=== PATIENT | female | born 1940 | race Caucasian/White ===

== ENCOUNTER 2017-01-05 21:43 | Emergency (ER) | payer MEDICARE, BC ==
[2017-01-05] MEDS ORDERED: Labetalol 20 MG/4 ML Syringe IVPUSH ONE (22:41)
[2017-01-05] MEDS: Sodium Chloride 0.9% 10 ML Syringe FLUSH PRN (23:27)
[2017-01-06] MEDS ORDERED: LORazepam 2 MG/ML MDV IVPUSH ONE (00:01)
[2017-01-06] MEDS: Sodium Chloride 0.9% 10 ML Syringe FLUSH PRN (00:28)
--- NOTE | 2017-01-06 00:50 | EDM.PDOC ---
ED HPI DIZZINESS - General Chief Complaint: Syncope Stated Complaint: DIZZY Time Seen by Provider: 01/05/17 22:25 Source: Reports: Patient Exam Limitations: Reports: No limitations - History of Present Illness INITIAL COMMENTS - FREE TEXT/NARRATIVE: History of present illness: [This 76-year-old female presents complaining of feeling funny". She describes dizziness and it's been a little difficult to determine exactly what she means by this but there is an element of vertigo in her dizziness. She has a sensation of movement and sometimes a spinning sensation and sometimes when she tilts her head back it gets worse moving her head from side to side does not seem to affect it she had a headache at the base of her scar and that has resolved she's had no fevers or chills cough or cold symptoms she denies any visual disturbances denies any focal weaknesses of arms or legs her speech is been good she's had no swallowing difficulties. She denies any prior strokes or heart attacks. She is on meds for cholesterol and hypertension.] Review of systems: As per history of present illness and below otherwise all systems reviewed and negative. Past medical history: As per history of present illness and as reviewed below otherwise noncontributory. Surgical history: As per history of present illness and as reviewed below otherwise noncontributory. Social history: No reported history of drug or alcohol abuse. Family history: As per history of present illness and as reviewed below otherwise noncontributory. Physical exam: HEENT: Atraumatic, normocephalic, pupils reactive, negative for conjunctival pallor or scleral icterus, mucous membranes moist, throat clear, neck supple, nontender, trachea midline. Her TMs are clear her pupils are equal round and react to light. She has no facial asymmetries or speech disturbance Lungs: Clear to auscultation, breath sounds equal bilaterally, chest nontender. Heart: S1S2, regular, negative for clicks, rubs, or JVD. Abdomen: Soft, nondistended, nontender. Negative for masses or hepatosplenomegaly. Negative for costovertebral tenderness. Pelvis: Stable nontender. Genitourinary: Deferred. Rectal: Deferred. Extremities: Atraumatic, negative for cords or calf pain. Neurovascular unremarkable. Neuro: Awake, alert, oriented. Cranial nerves II through XII unremarkable. Cerebellum unremarkable. Motor and sensory unremarkable throughout. Exam nonfocal. Diagnostics: [Addendum CBC a complete metabolic panel and a head CT. No significant finding is a head CT showing chronic changes age-related changes and lacunar infarcts probably see that report for details.] Therapeutics: [Her blood pressure was quite elevated when she came in and was treated with labetalol successfully. After her blood pressure came down she felt better. 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 We discussed the possibility that she may benefit from an MRI. She plans to followup with her primary care doctor to discuss this and to continue time controlling her blood pressure. 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 - Related Data Allergies/ADRs: Allergies Allergy/AdvReac Type Severity Reaction Status Date / Time Anesthetics - Amide Type Allergy Respiratory Verified 01/05/17 22:18 Distress morphine Allergy Nausea and Verified 01/05/17 22:18 Vomiting Home Meds: Home Meds Aspirin [Aspirin EC] 81 mg PO DAILY 01/06/17 [History] L Gasseri/B Bifidum/B Longum [[employer] Capsule] 1 cap PO DAILY [History] Lisinopril [Lisinopril] 20 mg 01/06/17 [History] Multivitamin [Multi-Vitamin Daily] 1 tab PO DAILY 01/06/17 [History] Naproxen Sodium [Aleve] 220 mg PO ASDIRECTED PRN 01/06/17 [History] [place]-3/DHA/Epa/Fish Oil [[place] 3 500 Softgel] 1 cap PO BEDTIME 01/06/17 [ History] atorvaSTATin [Lipitor] 20 mg PO BEDTIME 01/06/17 [History] Past Medical History HEENT History: Reports: Hard of hearing, Impaired vision Cardiovascular History: Reports: High cholesterol, Hypertension Gastrointestinal History: Reports: Hemorrhoids, Other (see below) Other Gastrointestinal History: gallstones Musculoskeletal History: Reports: Arthritis - Infectious Disease History Infectious Disease History: Reports: Chicken pox, Measles, Mumps, Rubella - Past Surgical History Female Surgical History: Reports: Other (see below) Other Female Surgeries/Procedures: cyst removal from perineum Social & Family History - Tobacco Use Smoking Status *Q: Never Smoker - Caffeine Use Caffeine Use: Reports: Coffee - Recreational Drug Use Recreational Drug Use: No ED ROS GENERAL - Review of Systems Review Of Systems: ROS reveals no pertinent complaints other than HPI. ED EXAM, DIZZINESS - Physical Exam Exam: See Below Course - Vital Signs Last Recorded V/S: Last Vital Signs Temp 37.1 C 01/05/17 22:09 Pulse 67 01/05/17 23:27 Resp 18 01/05/17 23:27 BP 161/77 H 01/05/17 23:27 Pulse Ox 97 01/05/17 23:27 - Orders/Labs/Meds Orders: Active Orders 24 hr Category Date Time Status EKG Documentation Completion [RC] ASDIRECTED Care 01/05/17 22:55 Active Head wo Cont [CT] Stat Exams 01/05/17 22:40 Taken UA W/MICROSCOPIC [URIN] Stat Lab 01/05/17 22:40 Uncollected Sodium Chloride 0.9% [Saline Flush] Med 01/05/17 22:41 Active 10 ml FLUSH ASDIRECTED PRN Saline Lock Insert [OM.PC] Routine Oth 01/05/17 22:41 Ordered EKG 12 Lead [EK] Stat Ther 01/05/17 22:55 Ordered Medication Orders Sodium Chloride (Saline Flush) 10 ml FLUSH ASDIRECTED PRN PRN Reason: Keep Vein Open Last Admin: 01/06/17 00:28 Dose: 10 ml Admin: 01/05/17 23:27 Dose: 10 ml Labs: Laboratory Tests 01/05/17 01/05/17 Range/Units 22:40 23:00 WBC 8.2 (4.5-11.0) K/uL RBC 4.53 (3.30-5.50) M/uL Hgb 14.1 (12.0-15.0) g/dL Hct 41.0 (36.0-48.0) % MCV 91 (80-98) fL MCH 31 (27-31) pg MCHC 34 (32-36) % Plt Count 284 (150-400) K/uL Neut % (Auto) 75 H (36-66) % Lymph % (Auto) 17 L (24-44) % Major % (Auto) 6 (2-6) % Eos % (Auto) 2 (2-4) % Baso % (Auto) 1 (0-1) % Sodium 142 (140-148) mmol/L Potassium 4.4 (3.6-5.2) mmol/L Chloride 105 (100-108) mmol/L Carbon Dioxide 27 (21-32) mmol/L Anion Gap 9.6 (5.0-14.0) mmol/L BUN 13 (7-18) mg/dL Creatinine 0.9 (0.6-1.0) mg/dL Est Cr Clr Drug Dosing 44.68 mL/min Estimated GFR (MDRD) > 60 (>60) Glucose 126 H (74-106) mg/dL Calcium 9.2 (8.5-10.1) mg/dL Total Bilirubin 1.6 H (0.2-1.0) mg/dL AST 46 H (15-37) U/L ALT 38 (12-78) U/L Alkaline Phosphatase 74 (46-116) U/L Troponin I < 0.017 (0.000-0.056) ng/mL Total Protein 7.7 (6.4-8.2) g/dL Albumin 3.8 (3.4-5.0) g/dL Globulin 3.9 H (2.3-3.5) g/dL Albumin/Globulin Ratio 1.0 L (1.2-2.2) Meds: Medications Generic Name Dose Route Start Last Admin Trade Name Freq PRN Reason Stop Dose Admin Sodium Chloride 10 ml 01/05/17 22:41 01/06/17 00:28 Saline Flush FLUSH 10 ml ASDIRECTED PRN Administration Keep Vein Open Discontinued Medications Generic Name Dose Route Start Last Admin Trade Name Freq PRN Reason Stop Dose Admin Labetalol HCl 20 mg 01/05/17 22:41 01/05/17 23:12 Normodyne IVPUSH 01/05/17 22:42 20 mg NOW ONE Administration Lorazepam 0.5 mg 01/06/17 00:01 01/06/17 00:22 Ativan IVPUSH 01/06/17 00:02 0.5 mg ONETIME ONE Administration Departure - Departure Time of Disposition: 00:50 Disposition: Home, Self-Care 01 Condition: good Clinical Impression: Dizziness, Abnormal CT scan, head Hypertension Qualifiers: Hypertension type: essential hypertension Qualified Code(s): I10 - Essential ( primary) hypertension Forms: ED Department Discharge Additional Instructions: Please followup with your doctor and discuss with him your blood pressure and also ask him if he thinks that he would benefit from an MRI of your brain. - My Orders Last 24 Hours: My Active Orders 01/05/17 22:40 Head wo Cont [CT] Stat UA W/MICROSCOPIC [URIN] Stat 01/05/17 22:41 Sodium Chloride 0.9% [Saline Flush] 10 ml FLUSH ASDIRECTED PRN Saline Lock Insert [OM.PC] Routine 01/05/17 22:55 EKG Documentation Completion [RC] ASDIRECTED EKG 12 Lead [EK] Stat - Assessment/Plan Last 24 Hours: My Active Orders 01/05/17 22:40 Head wo Cont [CT] Stat UA W/MICROSCOPIC [URIN] Stat 01/05/17 22:41 Sodium Chloride 0.9% [Saline Flush] 10 ml FLUSH ASDIRECTED PRN Saline Lock Insert [OM.PC] Routine 01/05/17 22:55 EKG Documentation Completion [RC] ASDIRECTED EKG 12 Lead [EK] Stat
[2017-01-06 01:23] VITALS: BP 168/89
== END 2017-01-06 01:09 | disposition home or self-care (01) ==
LOC: JP.ED 21:43
DX: I10 Essential (primary) hypertension (principal); R93.0 Abnormal findings on diagnostic imaging of skull and head, not elsewhere classified; E78.00 Pure hypercholesterolemia, unspecified; M19.90 Unspecified osteoarthritis, unspecified site; Z88.4 Allergy status to anesthetic agent; Z88.5 Allergy status to narcotic agent; Z79.82 Long term (current) use of aspirin; Z79.899 Other long term (current) drug therapy
CPT/HCPCS: 36415; 70450; 80053; 84484; 85025; 93005; 96374; 96375; 99285; J2060; J7050; 93010; 99284

== ENCOUNTER 2017-01-07 12:35 | Observation (INO) | payer MEDICARE, BC ==
--- NOTE | 2017-01-07 14:09 | EDM.PDOC ---
ED HPI GENERAL MEDICAL PROBLEM - General Chief Complaint: General Stated Complaint: NAUSEA,LIGHTHEADED, ELEVATED BP Time Seen by Provider: 01/07/17 14:08 Source of Information: Reports: Patient History Limitations: Reports: No limitations - History of Present Illness INITIAL COMMENTS - FREE TEXT/NARRATIVE: Pt arrived with an elevated bp. She has a headache. She is crying with out a reason Onset: gradual Duration: Hour(s):, Other (Pt was seen wed and had a head scan which showed aging changes. ) Location: Reports: head Associated Symptoms: Reports: headaches, malaise, weakness - Related Data Allergies Allergy/AdvReac Type Severity Reaction Status Date / Time Anesthetics - Amide Type Allergy Respiratory Verified 01/05/17 22:18 Distress morphine AdvReac Nausea and Verified 01/07/17 11:02 Vomiting Home Meds: Home Meds Aspirin [Aspirin EC] 81 mg PO DAILY 01/06/17 [History] L Gasseri/B Bifidum/B Longum [[employer] Capsule] 1 cap PO DAILY [History] Lisinopril [Prinivil] 30 mg PO DAILY 01/06/17 [History] Multivitamin [Multi-Vitamin Daily] 1 tab PO DAILY 01/06/17 [History] Naproxen Sodium [Aleve] 220 mg PO ASDIRECTED PRN 01/06/17 [History] [place]-3/DHA/Epa/Fish Oil [[place] 3 500 Softgel] 1 cap PO BEDTIME 01/06/17 [ History] atorvaSTATin [Lipitor] 80 mg PO BEDTIME 01/06/17 [History] Metoprolol Succinate [Toprol XL] 25 mg PO DAILY 01/07/17 [History] Past Medical History HEENT History: Reports: Hard of hearing, Impaired vision Cardiovascular History: Reports: High cholesterol, Hypertension Gastrointestinal History: Reports: Hemorrhoids, Other (see below) Other Gastrointestinal History: gallstones Musculoskeletal History: Reports: Arthritis - Infectious Disease History Infectious Disease History: Reports: Chicken pox, Measles, Mumps, Rubella - Past Surgical History Female Surgical History: Reports: Other (see below) Other Female Surgeries/Procedures: cyst removal from perineum Social & Family History - Tobacco Use Smoking Status *Q: Never Smoker - Caffeine Use Caffeine Use: Reports: Coffee - Recreational Drug Use Recreational Drug Use: No ED ROS GENERAL - Review of Systems Review Of Systems: See Below Constitutional: Reports: no symptoms HEENT: Reports: No symptoms Respiratory: Reports: No Symptoms Cardiovascular: Reports: No symptoms Endocrine: Reports: no symptoms GI/Abdominal: Reports: No symptoms : Reports: no symptoms Musculoskeletal: Reports: no symptoms Skin: Reports: no symptoms Neurological: Reports: Headache Psychiatric: Reports: Anxiety ED EXAM, GENERAL - Physical Exam Exam: See Below Free Text/Narrative:: Pt arrived with a history of inappopiate crying and her bp is quite elevated. She has not been right for the past 3-5 days. She is havinf a severe headche, Exam Limited By: Other (crying and feeling very upset.) General Appearance: alert, anxious, mild distress Ears: normal TMs Nose: normal inspection Throat/Mouth: Normal inspection Head: atraumatic Neck: normal inspection Respiratory/Chest: no respiratory distress Cardiovascular: regular rate, rhythm GI/Abdominal: soft, non tender Rectal (Female) Exam: Deferred Back Exam: normal inspection Extremities: normal inspection Neurological: alert, oriented, other ( weeping and crying as she describes how she feels. ) Psychiatric: anxious, tearful Course - Vital Signs Last Recorded V/S: Last Vital Signs Temp 36.2 C 01/07/17 18:34 Pulse 79 01/07/17 18:34 Resp 16 01/07/17 18:34 BP 143/72 H 01/07/17 18:34 Pulse Ox 95 01/07/17 18:34 - Orders/Labs/Meds Orders: Active Orders 24 hr Category Date Time Status EKG Documentation Completion [RC] ASDIRECTED Care 01/07/17 18:16 Active Renal Comp [US] Stat Exams 01/07/17 17:00 Taken Sodium Chloride 0.9% [Saline Flush] Med 01/07/17 17:00 Active 10 ml FLUSH ASDIRECTED PRN Saline Lock Insert [OM.PC] Routine Oth 01/07/17 17:00 Ordered EKG 12 Lead [EK] Routine Ther 01/07/17 18:16 Ordered Medication Orders Sodium Chloride (Saline Flush) 10 ml FLUSH ASDIRECTED PRN PRN Reason: Keep Vein Open Labs: Laboratory Tests 01/07/17 01/07/17 01/07/17 Range/Units 14:18 14:18 14:20 WBC 7.2 (4.5-11.0) K/uL RBC 4.29 (3.30-5.50) M/uL Hgb 13.1 (12.0-15.0) g/dL Hct 38.9 (36.0-48.0) % MCV 91 (80-98) fL MCH 31 (27-31) pg MCHC 34 (32-36) % Plt Count 273 (150-400) K/uL Neut % (Auto) 80 H (36-66) % Lymph % (Auto) 15 L (24-44) % [place] % (Auto) 4 (2-6) % Eos % (Auto) 1 L (2-4) % Baso % (Auto) 0 (0-1) % Sodium 141 (140-148) mmol/L Potassium 4.4 (3.6-5.2) mmol/L Chloride 106 (100-108) mmol/L Carbon Dioxide 24 (21-32) mmol/L Anion Gap 10.8 (5.0-14.0) mmol/L BUN 14 (7-18) mg/dL Creatinine 0.9 (0.6-1.0) mg/dL Est Cr Clr Drug Dosing 41.74 mL/min Estimated GFR (MDRD) > 60 (>60) Glucose 111 H (74-106) mg/dL Calcium 9.3 (8.5-10.1) mg/dL Total Bilirubin 1.9 H (0.2-1.0) mg/dL AST 29 (15-37) U/L ALT 39 (12-78) U/L Alkaline Phosphatase 70 (46-116) U/L Total Protein 7.5 (6.4-8.2) g/dL Albumin 3.8 (3.4-5.0) g/dL Globulin 3.7 H (2.3-3.5) g/dL Albumin/Globulin Ratio 1.0 L (1.2-2.2) Urine Color Yellow Urine Appearance Clear Urine pH 6.0 (4.5-8.0) Ur Specific [place] 1.015 (1.008-1.030) Urine Protein Negative (NEGATIVE) mg/dL Urine Glucose (UA) Normal (NEGATIVE) mg/dL Urine Ketones Negative (NEGATIVE) mg/dL Urine Occult Blood Moderate (NEGATIVE) Urine Nitrite Negative (NEGATIVE) Urine Bilirubin Negative (NEGATIVE) Urine Urobilinogen Normal (NORMAL) mg/dL Ur Leukocyte Esterase Negative (NEGATIVE) Urine RBC 0-5 (0-5) Urine WBC 0-5 (0-5) Ur Epithelial Cells Rare Urine Bacteria Moderate Urine Mucus Not seen Meds: Medications Generic Name Dose Route Start Last Admin Trade Name Freq PRN Reason Stop Dose Admin Sodium Chloride 10 ml 01/07/17 17:00 Saline Flush FLUSH ASDIRECTED PRN Keep Vein Open Discontinued Medications Generic Name Dose Route Start Last Admin Trade Name Freq PRN Reason Stop Dose Admin Labetalol HCl 20 mg 01/07/17 17:00 01/07/17 18:25 Normodyne IVPUSH 01/07/17 17:01 20 mg NOW ONE Administration Metoprolol Tartrate 25 mg 01/07/17 14:27 01/07/17 14:34 Lopressor PO 01/07/17 14:28 25 mg ONETIME ONE Administration - Re-Assessments/Exams Free Text/Narrative Re-Assessment/Exam: 01/07/17 18:40 pt arrived crying off and on and complaining of a headache in the back of her head. She keeps saying she just does not understand why her bp is so high, She had surjit readings in the 190/ 130 range. 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 She had a us of her kidneys and they both looked normal size, . An iv was started and she was given labatiol 20mg iv. She has settled down and seemes better at this time. Departure - Departure Time of Disposition: 18:44 Disposition: Admitted As Inpatient 67 Condition: fair Clinical Impression: Hypertension Qualifiers: Hypertension type: essential hypertension Qualified Code(s): I10 - Essential ( primary) hypertension Forms: ED Department Discharge Care Plan Goals: admit and observe bp. Pt is scheduled next week for a renal artery Us. . She is also scheduled for a echo. - My Orders Last 24 Hours: My Active Orders 01/07/17 17:00 Renal Comp [US] Stat Sodium Chloride 0.9% [Saline Flush] 10 ml FLUSH ASDIRECTED PRN Saline Lock Insert [OM.PC] Routine 01/07/17 18:16 EKG Documentation Completion [RC] ASDIRECTED EKG 12 Lead [EK] Routine - Assessment/Plan Last 24 Hours: My Active Orders 01/07/17 17:00 Renal Comp [US] Stat Sodium Chloride 0.9% [Saline Flush] 10 ml FLUSH ASDIRECTED PRN Saline Lock Insert [OM.PC] Routine 01/07/17 18:16 EKG Documentation Completion [RC] ASDIRECTED EKG 12 Lead [EK] Routine
[2017-01-07] MEDS ORDERED: Metoprolol Tartrate 25 MG Tab PO ONE (14:27)
[2017-01-07] MEDS ORDERED: Labetalol 20 MG/4 ML Syringe IVPUSH ONE (17:00)
[2017-01-07] MEDS ORDERED: Sodium Chloride 0.9% 10 ML Syringe FLUSH PRN (17:00)
[2017-01-07] MEDS ORDERED: Docusate Sodium 100 MG Cap PO PRN (20:27)
[2017-01-07] MEDS ORDERED: LORazepam 2 MG/ML MDV IV PRN (20:27)
[2017-01-07] MEDS ORDERED: Acetaminophen 325 MG Tab PO PRN (20:27)
[2017-01-07] MEDS ORDERED: Enoxaparin 40 MG/0.4 ML Syringe SUBCUT SCH (20:27)
[2017-01-07] MEDS ORDERED: Ibuprofen 600 MG Tab PO PRN (20:27)
[2017-01-07] MEDS ORDERED: Magnesium Hydroxide 400 MG/5 ML Susp 30 ML Cup PO PRN (20:27)
[2017-01-07] MEDS ORDERED: atorvaSTATin 20 MG Tab PO SCH (21:00)
[2017-01-07] MEDS ORDERED: diphenhydrAMINE 25 MG Cap PO SCH (21:00)
[2017-01-07] MEDS: Sodium Chloride 0.9% 1,000 ML IV SCH (21:01)
--- NOTE | 2017-01-07 23:35 | PCM.HP ---
H&P History of Present Illness - General Date of Service: 01/07/17 Source of Information: Patient, Family () History Limitations: Reports: No limitations - History of Present Illness Initial Comments - Free Text/Narative: High blood pressure: This is a 76-year-old female reports nausea dizzy lightheaded today noted her blood pressure to be elevated and came to ER for evaluation. She reports she was in the ER on Tuesday for a blood pressure of 206 over unknown, at that time she had a headache at the back of her head, negative CT scan, IV fluids, EKG normal, she went home felt fine, then symptoms today. She reports a by private care provider on given prescription for Metoprolol 25 mg daily and increase Atorvastin. She did get these meds filled but did not take them. She reports prior to her ER visit on Tuesday she did not see a primary care provider for the past 40 years. States has been healthy as a horse. Denies drinking, drugs, smoking. Reports healthy lifestyle lives in [place] with her of 40 years. Onset of Symptoms: Reports: sudden Duration of Symptoms: Reports: Day(s): Location: Reports: generalized Quality: Reports: Same as previous episode Improves with: Reports: None Worsens with: Reports: None Context: Reports: other (High blood pressure) Associated Symptoms: Reports: other (Dizzy, lightheaded) - Related Data Allergies/Adverse Reactions: Allergies Allergy/AdvReac Type Severity Reaction Status Date / Time Anesthetics - Amide Type Allergy Respiratory Verified 01/05/17 22:18 Distress morphine AdvReac Nausea and Verified 01/07/17 11:02 Vomiting Home Medications: Home Meds Aspirin [Aspirin EC] 81 mg PO DAILY 01/06/17 [History] L Gasseri/B Bifidum/B Longum [[employer] Health Capsule] 1 cap PO DAILY [History] Lisinopril [Prinivil] 30 mg PO DAILY 01/06/17 [History] Multivitamin [Multi-Vitamin Daily] 1 tab PO DAILY 01/06/17 [History] Naproxen Sodium [Aleve] 220 mg PO ASDIRECTED PRN 01/06/17 [History] [place]-3/DHA/Epa/Fish Oil [[place] 3 500 Softgel] 1 cap PO BEDTIME 01/06/17 [ History] atorvaSTATin [Lipitor] 80 mg PO BEDTIME 01/06/17 [History] Metoprolol Succinate [Toprol XL] 25 mg PO DAILY 01/07/17 [History] Past Medical History HEENT History: Reports: Hard of hearing, Impaired vision Cardiovascular History: Reports: High cholesterol, Hypertension Gastrointestinal History: Reports: Hemorrhoids, Other (see below) Other Gastrointestinal History: gallstones Musculoskeletal History: Reports: Arthritis - Infectious Disease History Infectious Disease History: Reports: Chicken pox, Measles, Mumps, Rubella - Past Surgical History Female Surgical History: Reports: Other (see below) Other Female Surgeries/Procedures: cyst removal from perineum Social & Family History - Tobacco Use Smoking Status *Q: Never Smoker - Caffeine Use Caffeine Use: Reports: Coffee - Recreational Drug Use Recreational Drug Use: No - Living Situation & Occupation Living situation: Reports: (40 years to her , no children) Occupation: retired [employer] Review of Systems - Review of Systems: Review Of Systems: See Below General: Reports: other (Reports she's not feeling well, dizziness, lightheadedness, and nausea.) HEENT: Reports: no symptoms Pulmonary: Reports: No Symptoms Cardiovascular: Reports: no symptoms Gastrointestinal: Reports: Nausea Musculoskeletal: Reports: no symptoms Skin: Reports: no symptoms Psychiatric: Reports: no symptoms Neurological: Reports: Dizziness, Headache Hematologic/Lymphatic: Reports: no symptoms Immunologic: Reports: no symptoms Exam - Exam Exam: See Below - Vital Signs Vital Signs: Last Vital Signs Temp 36.2 C 01/07/17 18:34 Pulse 78 01/07/17 19:04 Resp 16 01/07/17 19:04 BP 144/91 H 01/07/17 19:04 Pulse Ox 97 01/07/17 19:04 Weight: 75.7 kg - Exam General: alert, oriented, 4 HEENT: PERRLA, Hearing intact, Mucosa moist & pink, Nares patent, Normal nasal septum, Posterior pharynx clear, Conjunctiva clear, EOMI, EACs clear, TMs clear Neck: supple, trachea midline, 2 Lungs: Clear to auscultation, Normal respiratory effort Cardiovascular: regular rate, regular rhythm Abdomen: normal bowel sounds, soft (Female) Exam: Deferred (Declines exam) Rectal (Female) Exam: Deferred Back Exam: normal inspection, full range of motion, NT Extremities: 3, normal inspection, 10 Peripheral Pulses: 2+: radial (L), radial (R) Skin: warm, dry, intact Neurological: cranial nerves intact, reflexes equal bilateral Neuro Extensive - Mental Status: alert, oriented x3, normal mood/affect, normal cognition Neuro Extensive - Motor, Sensory, Reflexes: CN II-XII intact, normal gait, normal reflexes Psychiatric: alert, normal affect, normal mood, other (Intermittent crying do to not feeling well.) - Patient Data Result Diagrams: 01/07/17 14:18 01/07/17 14:18 EKG INTERPRETATION Rhythm: NSR *Q Meaningful Use (ADM) - VTE *Q VTE Criteria *Q: - Stroke *Q Stroke Criteria *Q: - AMI *Q AMI Criteria *Q: - Problem List (1) Hypertension SNOMED Code(s): 44617203 ICD Code: I10 - ESSENTIAL (PRIMARY) HYPERTENSION Status: Acute Priority: High Current Visit: Yes Qualifiers: Hypertension type: essential hypertension Qualified Code(s): I10 - Essential (primary) hypertension Problem List Initiated/Reviewed/Updated: Yes Orders Last 24hrs: Medication Orders Acetaminophen (Tylenol) 650 mg PO Q4H PRN PRN Reason: Pain (Mild 1-3)/fever Aspirin (Halfprin) 81 mg PO DAILY [facility] Atorvastatin Calcium (Lipitor) 80 mg PO BEDTIME [facility] Last Admin: 01/07/17 21:29 Dose: 80 mg Diphenhydramine HCl (Benadryl) 25 mg PO BEDTIME [facility] Docusate Sodium (Colace) 100 mg PO BID PRN PRN Reason: Constipation Enoxaparin Sodium (Lovenox) 40 mg SUBCUT DAILY [facility] Last Admin: 01/07/17 21:30 Dose: 40 mg Sodium Chloride (Normal Saline) 1,000 mls @ 100 mls/hr IV ASDIRECTED [facility] Last Admin: 01/07/17 21:01 Dose: 100 mls/hr Ibuprofen (Motrin) 600 mg PO Q6H PRN PRN Reason: Pain/Fever Lisinopril (Prinivil) 30 mg PO DAILY [facility] Lorazepam (Ativan) 1 mg IV Q6H PRN PRN Reason: Nausea/Vomiting Magnesium Hydroxide (Milk Of Magnesia) 30 ml PO Q12H PRN PRN Reason: Constipation Metoprolol Succinate (Toprol Xl) 25 mg PO DAILY [facility] Pantoprazole Sodium (Protonix) 40 mg PO DAILY [facility] Sodium Chloride (Saline Flush) 10 ml FLUSH ASDIRECTED PRN PRN Reason: Keep Vein Open Assessment/Plan Comment:: Assessment and plan High blood pressure: This is a 76-year-old female reports nausea, dizzy, lightheaded today noted her blood pressure to be elevated and came to ER for evaluation. She reports she was in the ER on Tuesday for a blood pressure of 206 over unknown, at that time she had a headache at the back of her head, negative CT scan, IV fluids, EKG normal, she went home felt fine, then symptoms return today. She reports appointment with primary care provider on , given prescription for Metoprolol 25 mg daily and increase Atorvastin. She did get these meds filled but did not take them. She reports prior to her ER visit on Tuesday, she has not see a primary care provider for the past 40 years. States has been "healthy as a horse". Denies drinking, drugs, smoking. Reports healthy lifestyle lives in [place] with her of 40 years. Case discussed with hospitalist will plan to admit overnight to monitor blood pressure Plan -Admit to ICU med overflow -Monitor blood pressure every 4 hours -Medication orders; lisinopril, metoprolol, able statin, baby aspirin -IV fluids 125 per hour -Referral to spiritual care Maintenance issues -GI prophylaxis; Protonix 40 mg by mouth daily -Diet: Regular -DVT prophylaxis: Lovenox 30 mg subcutaneous -Mueller cath: Not indicated at this time CODE STATUS: Full Admission status: Admit to Observation -I expect this patient to stay less than 24 hours, not to exceed 96 hours for evaluation and management of this problem. Disposition;home with Primary care provider: Dr. Sow
[2017-01-08] MEDS: Sodium Chloride 0.9% 1,000 ML IV SCH (05:30)
[2017-01-08] MEDS ORDERED: Pantoprazole 40 MG Tab.CR PO SCH (07:30)
[2017-01-08 08:55] VITALS: BP 162/93
[2017-01-08] MEDS ORDERED: Metoprolol Succinate 25 MG (PTOM) PO SCH (09:00)
[2017-01-08] MEDS ORDERED: Lisinopril 10 MG Tab PO SCH (09:00)
[2017-01-08] MEDS ORDERED: Aspirin 81 MG Tab.EC PO SCH (09:00)
[2017-01-08] MEDS ORDERED: Lisinopril 20 MG Tab PO SCH (09:00)
--- NOTE | 2017-01-08 09:02 | PCM.DCSUM1 ---
Discharge Summary - Hospital Course Brief History: 76-year-old female with recent diagnosis of hypertension who presents with dizziness, emotional lability and accelerated hypertension. She was admitted for observation and medication adjustment. - Discharge Data Discharge Date: 01/08/17 Discharge Disposition: Home, Self-Care 01 Condition: Good - Discharge Diagnosis/Problem(s) (1) Accelerated hypertension SNOMED Code(s): 02327808 ICD Code: I10 - ESSENTIAL (PRIMARY) HYPERTENSION Status: Acute (2) Dizziness SNOMED Code(s): 765566654, [id number] ICD Code: R42 - DIZZINESS AND GIDDINESS Status: Acute - Patient Summary/Data Hospital Course: Joellen presented to the emergency room yesterday with elevated blood pressure readings as well as dizziness and frequent episodes of crying. Blood pressure was elevated in the emergency room and she required a dose of labetalol. She was admitted for further blood pressure management. Overnight her blood pressures have improved without significant intervention. Systolic pressures this morning are 160s. She feels back to usual self and does not have ongoing dizziness. We did review current medications and have elected to increase her lisinopril to full dose at 40 mg. She will continue the long-acting metoprolol once daily. I believe this should provide adequate blood pressure control for her. If not she may need a vasoactive agent such as amlodipine or potentially hydralazine. She does have a fair amount of calcium in her blood vessels and may have difficulty with auto-regulating because of decreased compliance. Kidney function is normal. She has orders for upcoming renal artery ultrasound and echocardiogram. Renal ultrasound to assess size suggest normal sized kidneys. She feels well and would like to go home. I believe that she safe for outpatient management with blood pressures in the current range of 140-160. She has followup scheduled in 2 weeks and 6 weeks. Regarding her emotional lability I believe that it's because of her self-reported loss of control. She doesn't feel like she has control over her blood pressure and this causes a fair amount of frustration. She feels that once her blood pressure has improved these episodes will go away. Head CT did not show evidence for acute pathology. She'll be discharged home with a new prescription for lisinopril 40 mg which she will take once daily. - Patient Instructions Diet: Heart Healthy Diet Activity: As Tolerated Driving: May Drive Today Showering/Bathing: May Shower Notify Provider of: Fever, Increased Pain, Nausea and/or Vomiting Other/Special Instructions: 1. You were in the hospital for management of accelerated hypertension. We have made one adjustment to your blood pressure regimen and have increased your lisinopril to 40 mg. You have 20 mg tablets at home, take 2 of these once daily in the morning. If your blood pressure is well controlled in 2 weeks when you followup, you should ask for a prescription for 40 mg tablets. You may take this at the same time as your metoprolol (beta elsie). You can continue to take your cholesterol medication and baby aspirin at bedtime. If you are in town grocery shopping you could check your blood pressure at either [email or web address] or [employer]. 2. Please follow up as scheduled in [address] Sow and then made with Dominic Guerra. 3. Please seek medical attention if you develop chest pain, acute onset of difficulty breathing, severe headache or significant blurring of your vision. - Discharge Plan Prescriptions/Med Rec: Lisinopril 40 mg PO DAILY #30 tablet Home Medications: Home Meds Aspirin [Aspirin EC] 81 mg PO DAILY 01/06/17 [History] L Gasseri/B Bifidum/B Longum [[employer] Capsule] 1 cap PO DAILY [History] Multivitamin [Multi-Vitamin Daily] 1 tab PO DAILY 01/06/17 [History] Naproxen Sodium [Aleve] 220 mg PO ASDIRECTED PRN 01/06/17 [History] [place]-3/DHA/Epa/Fish Oil [[place] 3 500 Softgel] 1 cap PO BEDTIME 01/06/17 [ History] atorvaSTATin [Lipitor] 80 mg PO BEDTIME 01/06/17 [History] Metoprolol Succinate [Toprol XL] 25 mg PO DAILY 01/07/17 [History] Lisinopril 40 mg PO DAILY #30 tablet 01/08/17 [Rx] Patient Handouts: Lisinopril tablets, Metoprolol extended-release tablets Referrals: Dominic Guerra, [facility] [Primary Care Provider] - (Followup as scheduled in February) John Sow MD [Physician] - (Followup as scheduled in 2 weeks) - Discharge Summary/Plan Comment DC Time >30 min.: No (25) - Patient Data Vitals - Most Recent: Last Vital Signs Temp 36.6 C 01/08/17 05:21 Pulse 77 01/08/17 08:54 Resp 15 01/08/17 05:21 BP 162/93 H 01/08/17 08:54 Pulse Ox 98 01/08/17 05:21 Weight - Most Recent: 75.7 kg I&O - Last 24 hours: Intake & Output 01/07/17 01/08/17 01/08/17 22:59 06:59 14:59 Intake Total 1363 Output Total 650 Balance 713 Lab Results - Last 24 hrs: Laboratory Results - last 24 hr 01/08/17 01/08/17 Range/Units 05:24 05:24 WBC 8.4 (4.5-11.0) K/uL RBC 4.03 (3.30-5.50) M/uL Hgb 12.2 (12.0-15.0) g/dL Hct 36.8 (36.0-48.0) % MCV 91 (80-98) fL MCH 30 (27-31) pg MCHC 33 (32-36) % Plt Count 252 (150-400) K/uL Neut % (Auto) 63 (36-66) % Lymph % (Auto) 27 (24-44) % [place] % (Auto) 8 H (2-6) % Eos % (Auto) 1 L (2-4) % Baso % (Auto) 0 (0-1) % Sodium 142 (140-148) mmol/L Potassium 4.1 (3.6-5.2) mmol/L Chloride 108 (100-108) mmol/L Carbon Dioxide 26 (21-32) mmol/L Anion Gap 7.9 (5.0-14.0) mmol/L BUN 13 (7-18) mg/dL Creatinine 0.9 (0.6-1.0) mg/dL Est Cr Clr Drug Dosing 41.57 mL/min Estimated GFR (MDRD) > 60 (>60) Glucose 92 (74-106) mg/dL Calcium 8.7 (8.5-10.1) mg/dL Med Orders - Current: Current Medications Acetaminophen (Tylenol) 650 mg PO Q4H PRN PRN Reason: Pain (Mild 1-3)/fever Aspirin (Halfprin) 81 mg PO DAILY [facility] Last Admin: 01/08/17 08:52 Dose: 81 mg Diphenhydramine HCl (Benadryl) 25 mg PO BEDTIME [facility] Last Admin: 01/08/17 01:09 Dose: Not Given Docusate Sodium (Colace) 100 mg PO BID PRN PRN Reason: Constipation Enoxaparin Sodium (Lovenox) 40 mg SUBCUT BEDTIME [facility] Sodium Chloride (Normal Saline) 1,000 mls @ 100 mls/hr IV ASDIRECTED [facility] Last Admin: 01/08/17 05:30 Dose: 100 mls/hr Ibuprofen (Motrin) 600 mg PO Q6H PRN PRN Reason: Pain/Fever Lisinopril (Prinivil) 40 mg PO DAILY [facility] Last Admin: 01/08/17 08:52 Dose: 40 mg Lorazepam (Ativan) 1 mg IV Q6H PRN PRN Reason: Nausea/Vomiting Magnesium Hydroxide (Milk Of Magnesia) 30 ml PO Q12H PRN PRN Reason: Constipation Metoprolol Succinate (Toprol Xl) 25 mg PO DAILY [facility] Last Admin: 01/08/17 08:54 Dose: 25 mg Pantoprazole Sodium (Protonix) 40 mg PO DAILY@0730 [facility] Last Admin: 01/08/17 08:54 Dose: 40 mg Atorvastatin 80mg ( (Ptom)) 0 each PO BEDTIME [facility] Sodium Chloride (Saline Flush) 10 ml FLUSH ASDIRECTED PRN PRN Reason: Keep Vein Open Discontinued Medications Atorvastatin Calcium (Lipitor) 80 mg PO BEDTIME [facility] Last Admin: 01/07/17 21:29 Dose: 80 mg Enoxaparin Sodium (Lovenox) 40 mg SUBCUT DAILY [facility] Last Admin: 01/07/17 21:30 Dose: 40 mg Labetalol HCl (Normodyne) 20 mg IVPUSH NOW ONE Stop: 01/07/17 17:01 Last Admin: 01/07/17 18:25 Dose: 20 mg Lisinopril (Prinivil) 30 mg PO DAILY [facility] Metoprolol Tartrate (Lopressor) 25 mg PO ONETIME ONE Stop: 01/07/17 14:28 Last Admin: 01/07/17 14:34 Dose: 25 mg *Q Meaningful Use (DIS) - VTE *Q VTE Criteria *Q: - Stroke *Q Stroke Criteria *Q: - AMI *Q AMI Criteria *Q:
[2017-01-08] MEDS ORDERED: Enoxaparin 40 MG/0.4 ML Syringe SUBCUT SCH (21:00)
[2017-01-08] MEDS ORDERED: ATORVASTATIN 80MG (PTOM) PO SCH (21:00)
== END 2017-01-08 09:36 | disposition home or self-care (01) ==
LOC: JP.ED 12:35 → JP.ICU 20:22
PROVIDERS: ADMIT Internal Medicine; ATTEND Internal Medicine
DX: I10 Essential (primary) hypertension (principal); R42 Dizziness and giddiness; E78.00 Pure hypercholesterolemia, unspecified; M19.90 Unspecified osteoarthritis, unspecified site; Z79.82 Long term (current) use of aspirin; Z79.899 Other long term (current) drug therapy; Z88.6 Allergy status to analgesic agent; Z88.4 Allergy status to anesthetic agent
CPT/HCPCS: 36415; 76770; 80048; 80053; 81001; 84484; 85025; 93005; 96361; 96372; 96374; 99285; A9270; G0378; J1650; J7040; 93010; 99234

== ENCOUNTER 2017-04-19 09:23 | Emergency (ER) | payer MEDICARE, BC ==
[2017-04-19] MEDS: LORazepam 0.5 MG Tab PO ONE ×2 (10:26→10:27)
[2017-04-19 10:44] VITALS: BP 162/75
--- NOTE | 2017-04-19 11:36 | EDM.PDOC ---
ED HPI GENERAL MEDICAL PROBLEM - General Chief Complaint: General Stated Complaint: DIZZINESS,NAUSEA Time Seen by Provider: 04/19/17 09:40 Source of Information: Reports: Patient History Limitations: Reports: No Limitations - History of Present Illness INITIAL COMMENTS - FREE TEXT/NARRATIVE: pt arrived with a history of several days of episodes of feeling like she is going to pass out and nausea. She has not vomited. She does have an appt with her provideer tomorrow. Onset: Gradual, Other ( past 3-4 days. Worse today . She is having very tearful episodes. ) Duration: Day(s): Location: Reports: Other ( feeling liteheaded. She is not having episodes that I would describe aas vertigo. ) Severity: Mild Associated Symptoms: Reports: Other ( pt is feeling liteheaded. She had a very through workup in December for a simlar episode. ) Lower Chest Pain Score (Numeric/FACES): 4 - Related Data Allergies Allergy/AdvReac Type Severity Reaction Status Date / Time Anesthetics - Amide Type Allergy Respiratory Verified 01/05/17 22:18 Distress morphine AdvReac Nausea and Verified 01/07/17 11:02 Vomiting Home Meds: Home Meds Aspirin [Aspirin EC] 81 mg PO DAILY 01/06/17 [History] L Gasseri/B Bifidum/B Longum [[employer] Capsule] 1 cap PO DAILY [History] Multivitamin [Multi-Vitamin Daily] 1 tab PO DAILY 01/06/17 [History] Naproxen Sodium [Aleve] 220 mg PO ASDIRECTED PRN 01/06/17 [History] [place]-3/DHA/Epa/Fish Oil [[place] 3 500 Softgel] 1 cap PO BEDTIME 01/06/17 [ History] atorvaSTATin [Lipitor] 80 mg PO BEDTIME 01/06/17 [History] Metoprolol Succinate [Toprol XL] 25 mg PO DAILY 01/07/17 [History] Lisinopril 40 mg PO DAILY #30 tablet 01/08/17 [Rx] Past Medical History HEENT History: Reports: Hard of Hearing, Impaired Vision Cardiovascular History: Reports: High Cholesterol, Hypertension Gastrointestinal History: Reports: Hemorrhoids, Other (See Below) Other Gastrointestinal History: gallstones Musculoskeletal History: Reports: Arthritis - Infectious Disease History Infectious Disease History: Reports: Chicken Pox, Measles, Mumps - Past Surgical History Female Surgical History: Reports: Other (See Below) Social & Family History - Tobacco Use Smoking Status *Q: Never Smoker - Caffeine Use Caffeine Use: Reports: Coffee - Recreational Drug Use Recreational Drug Use: No - Living Situation & Occupation Living situation: Reports: Occupation: Retired ED ROS GENERAL - Review of Systems Review Of Systems: See Below Constitutional: Reports: No Symptoms HEENT: Reports: Other ( episodes of being liteheaded. ) Respiratory: Reports: No Symptoms Cardiovascular: Reports: No Symptoms Endocrine: Reports: No Symptoms GI/Abdominal: Reports: Nausea : Reports: No Symptoms Musculoskeletal: Reports: No Symptoms Skin: Reports: No Symptoms Psychiatric: Reports: Anxiety, Other (pt is tearful and crying. She states this is because she does not feel well. ) Hematologic/Lymphatic: Reports: No Symptoms Immunologic: Reports: No Symptoms ED EXAM, GENERAL - Physical Exam Exam: See Below Free Text/Narrative:: pt arrived complainimng of being very liteheaded, She is mildly nauseated. Exam Limited By: No Limitations General Appearance: Alert, Anxious, Other (pt is crying. ) Ears: Normal TMs Nose: Normal Inspection Throat/Mouth: Normal Inspection Head: Atraumatic Neck: Normal Inspection, Other (no carotid bruits. She has had a recent carotid US. ) Respiratory/Chest: No Respiratory Distress Cardiovascular: Regular Rate, Rhythm, Other ( bp is gradually coming down. Her orthostatics did not sjhow a sig drop. ) GI/Abdominal: Soft, Non-Tender (Female) Exam: Deferred Rectal (Female) Exam: Deferred Back Exam: Normal Inspection Extremities: Normal Inspection Neurological: Alert, Oriented Psychiatric: Anxious, Tearful Course - Vital Signs Last Recorded V/S: Last Vital Signs Temp 36.1 C 04/19/17 09:40 Pulse 69 04/19/17 10:43 Resp 16 04/19/17 09:40 BP 162/75 H 04/19/17 10:43 Pulse Ox 97 04/19/17 09:40 Orthostatic Blood Pressure [ 156/92 Standing] Orthostatic Blood Pressure [ 167/83 Sitting] Orthostatic Blood Pressure [ 162/75 Supine] - Orders/Labs/Meds Orders: Active Orders 24 hr Category Date Time Status Cardiac Monitoring [RC] .As Directed Care 04/19/17 10:56 Active EKG Documentation Completion [RC] ASDIRECTED Care 04/19/17 10:18 Active Orthostatic Vital Signs [RC] ASDIRECTED Care 04/19/17 10:17 Active UA W/MICROSCOPIC [URIN] Urgent Lab 04/19/17 10:02 Uncollected EKG 12 Lead [EK] Routine Ther 04/19/17 10:18 Ordered Labs: Laboratory Tests 04/19/17 04/19/17 Range/Units 10:14 10:14 WBC 6.2 (4.5-11.0) K/uL RBC 4.21 (3.30-5.50) M/uL Hgb 12.9 (12.0-15.0) g/dL Hct 39.2 (36.0-48.0) % MCV 93 (80-98) fL MCH 31 (27-31) pg MCHC 33 (32-36) % Plt Count 273 (150-400) K/uL Neut % (Auto) 68 H (36-66) % Lymph % (Auto) 24 (24-44) % [place] % (Auto) 6 (2-6) % Eos % (Auto) 2 (2-4) % Baso % (Auto) 1 (0-1) % Sodium 140 (140-148) mmol/L Potassium 4.6 (3.6-5.2) mmol/L Chloride 106 (100-108) mmol/L Carbon Dioxide 29 (21-32) mmol/L Anion Gap 4.9 L (5.0-14.0) mmol/L BUN 12 (7-18) mg/dL Creatinine 1.0 (0.6-1.0) mg/dL Est Cr Clr Drug Dosing 40.21 mL/min Estimated GFR (MDRD) 54 L (>60) Glucose 113 H (74-106) mg/dL Calcium 9.0 (8.5-10.1) mg/dL Total Bilirubin 1.3 H (0.2-1.0) mg/dL AST 48 H (15-37) U/L ALT 64 (12-78) U/L Alkaline Phosphatase 90 (46-116) U/L Total Protein 6.9 (6.4-8.2) g/dL Albumin 3.4 (3.4-5.0) g/dL Globulin 3.5 (2.3-3.5) g/dL Albumin/Globulin Ratio 1.0 L (1.2-2.2) Meds: Medications Discontinued Medications Generic Name Dose Route Start Last Admin Trade Name Danilo PRN Reason Stop Dose Admin Lorazepam 0.5 mg 04/19/17 10:18 04/19/17 10:27 Ativan PO 04/19/17 10:19 0.5 mg ONETIME ONE Administration - Re-Assessments/Exams Free Text/Narrative Re-Assessment/Exam: 04/19/17 11:40 pts bp has gradually come down to 160,/70. She is better after a >.5 of ativan. She was advised that when she has these episodes of being very lite headed it would be helpful if she could take a bp.-- to see if it is low or high. She does not feel that there is motion connected but it does sound like a inner disturbance could be a possiblity. Departure - Departure Time of Disposition: 11:44 Disposition: Home, Self-Care 01 Condition: Fair Clinical Impression: Anxiety, Inner ear disease Hypertension Qualifiers: Hypertension type: essential hypertension Qualified Code(s): I10 - Essential ( primary) hypertension - Discharge Information Forms: ED Department Discharge Care Plan Goals: check bp when she is having episodes of being lite headed , keep appt with Dominic Moe tomorrow, If she has another episode where she s very tearful use ativan .5 1/2 to 1 tab as needed basis . No more then 2 per dsy. cont bp meds. - My Orders Last 24 Hours: My Active Orders 04/19/17 10:02 UA W/MICROSCOPIC [URIN] Urgent 04/19/17 10:17 Orthostatic Vital Signs [RC] ASDIRECTED 04/19/17 10:18 EKG Documentation Completion [RC] ASDIRECTED EKG 12 Lead [EK] Routine 04/19/17 10:56 Cardiac Monitoring [RC] .As Directed - Assessment/Plan Last 24 Hours: My Active Orders 04/19/17 10:02 UA W/MICROSCOPIC [URIN] Urgent 04/19/17 10:17 Orthostatic Vital Signs [RC] ASDIRECTED 04/19/17 10:18 EKG Documentation Completion [RC] ASDIRECTED EKG 12 Lead [EK] Routine 04/19/17 10:56 Cardiac Monitoring [RC] .As Directed
== END 2017-04-19 12:15 | disposition home or self-care (01) ==
LOC: JP.ED 09:23
DX: F41.9 Anxiety disorder, unspecified (principal); I10 Essential (primary) hypertension; H83.90 Unspecified disease of inner ear, unspecified ear; E78.00 Pure hypercholesterolemia, unspecified; Z79.82 Long term (current) use of aspirin; Z79.899 Other long term (current) drug therapy; Z88.5 Allergy status to narcotic agent; Z88.4 Allergy status to anesthetic agent
CPT/HCPCS: 36415; 80053; 81001; 85025; 93005; 99283; 99284; A9270; 93010

== ENCOUNTER 2017-10-06 10:38 | Emergency (ER) | payer MEDICARE, BC ==
[2017-10-06] MEDS ORDERED: LORazepam 0.5 MG Tab PO ONE (10:58)
[2017-10-06] MEDS: Meclizine 25 MG Tab PO ONE ×2 (11:37→12:02)
[2017-10-06] MEDS ORDERED: Sodium Chloride 0.9% 1,000 ML IV SCH (11:45)
--- NOTE | 2017-10-06 12:43 | EDM.PDOC ---
ED HPI GENERAL MEDICAL PROBLEM - General Chief Complaint: Chest Pain Stated Complaint: LIGHT-HEADED/NAUSEA Time Seen by Provider: 10/06/17 10:55 Source of Information: Reports: Patient, Family History Limitations: Reports: No Limitations - History of Present Illness INITIAL COMMENTS - FREE TEXT/NARRATIVE: pt arrived very anxious and feeling dizzy. She did not have a headache. She did not passout. She did not have a feeling that her heart was racing. She did not have chest pain. Onset: Today, Other (pt has had similar episodes. ) Duration: Hour(s): Location: Reports: Head Associated Symptoms: Reports: Other ( Pt felt anxious and she did feel off balance. ) - Related Data Allergies Allergy/AdvReac Type Severity Reaction Status Date / Time Anesthetics - Amide Type Allergy Respiratory Verified 10/06/17 10:46 Distress morphine AdvReac Nausea and Verified 10/06/17 10:46 Vomiting Home Meds: Home Meds Aspirin [Aspirin EC] 81 mg PO DAILY 01/06/17 [History] L Gasseri/B Bifidum/B Longum [[employer] Capsule] 1 cap PO DAILY [History] Multivitamin [Multi-Vitamin Daily] 1 tab PO DAILY 01/06/17 [History] Naproxen Sodium [Aleve] 220 mg PO ASDIRECTED PRN 01/06/17 [History] [place]-3/DHA/Epa/Fish Oil [[place] 3 500 Softgel] 1 cap PO BEDTIME 01/06/17 [ History] atorvaSTATin [Lipitor] 80 mg PO BEDTIME 01/06/17 [History] Metoprolol Succinate [Toprol XL] 25 mg PO DAILY 01/07/17 [History] Lisinopril 40 mg PO DAILY #30 tablet 01/08/17 [Rx] Past Medical History HEENT History: Reports: Hard of Hearing, Impaired Vision Cardiovascular History: Reports: High Cholesterol, Hypertension Gastrointestinal History: Reports: Hemorrhoids, Other (See Below) Other Gastrointestinal History: gallstones Musculoskeletal History: Reports: Arthritis Psychiatric History: Reports: Anxiety - Infectious Disease History Infectious Disease History: Reports: Chicken Pox, Measles, Mumps - Past Surgical History Female Surgical History: Reports: Other (See Below) Social & Family History - Tobacco Use Smoking Status *Q: Unknown Ever Smoked - Caffeine Use Caffeine Use: Reports: Coffee - Recreational Drug Use Recreational Drug Use: No - Living Situation & Occupation Living situation: Reports: Occupation: Retired ED ROS GENERAL - Review of Systems Review Of Systems: See Below Constitutional: Reports: No Symptoms HEENT: Reports: No Symptoms Respiratory: Reports: No Symptoms Cardiovascular: Reports: No Symptoms Endocrine: Reports: No Symptoms GI/Abdominal: Reports: No Symptoms : Reports: No Symptoms Musculoskeletal: Reports: No Symptoms Neurological: Reports: Dizziness Psychiatric: Reports: Anxiety ED EXAM, GENERAL - Physical Exam Exam: See Below Free Text/Narrative:: pt arrived with a history of feeling very off balance. When she sat up the entire room was spinning and did have the sensation that she could pass out. Exam Limited By: No Limitations General Appearance: Alert, Anxious, Mild Distress, Other ( Pupils are equal and reactive. pt does have a mild lateral nystagmus. ) Ears: Normal TMs, Other Nose: Normal Inspection Throat/Mouth: Normal Inspection Head: Atraumatic Neck: Normal Inspection Respiratory/Chest: No Respiratory Distress Cardiovascular: Regular Rate, Rhythm, Other ( no acute changes) GI/Abdominal: Soft, Non-Tender (Female) Exam: Deferred Rectal (Female) Exam: Deferred Back Exam: Normal Inspection Extremities: Normal Inspection Neurological: Alert, Oriented, Normal Cognition Psychiatric: Normal Affect Course - Vital Signs Last Recorded V/S: Last Vital Signs Temp 36.7 C 10/06/17 10:46 Pulse 62 10/06/17 12:20 Resp 14 10/06/17 12:20 BP 177/79 H 10/06/17 13:27 Pulse Ox 95 10/06/17 12:20 Orthostatic Blood Pressure [ 199/83 Standing] Orthostatic Blood Pressure [ 217/91 Sitting] - Orders/Labs/Meds Orders: Active Orders 24 hr Category Date Time Status Cardiac Monitoring [RC] .As Directed Care 10/06/17 10:42 Active EKG Documentation Completion [RC] ASDIRECTED Care 10/06/17 10:42 Active Sodium Chloride 0.9% [Normal Saline] 1,000 ml Med 10/06/17 11:45 Active IV ASDIRECTED EKG 12 Lead [EK] Routine Ther 10/06/17 10:42 Ordered Medication Orders Sodium Chloride (Normal Saline) 1,000 mls @ 999 mls/hr IV ASDIRECTED WILL Last Admin: 10/06/17 12:01 Dose: 999 mls/hr Labs: Laboratory Tests 10/06/17 10/06/17 10/06/17 Range/Units 10:47 10:47 10:47 WBC 8.6 (4.5-11.0) K/uL RBC 4.43 (3.30-5.50) M/uL Hgb 13.5 (12.0-15.0) g/dL Hct 40.5 (36.0-48.0) % MCV 91 (80-98) fL MCH 31 (27-31) pg MCHC 33 (32-36) % Plt Count 260 (150-400) K/uL Neut % (Auto) 78 H (36-66) % Lymph % (Auto) 15 L (24-44) % Wood % (Auto) 6 (2-6) % Eos % (Auto) 1 L (2-4) % Baso % (Auto) 0 (0-1) % Sodium 142 (140-148) mmol/L Potassium 4.5 (3.6-5.2) mmol/L Chloride 106 (100-108) mmol/L Carbon Dioxide 31 (21-32) mmol/L Anion Gap 4.6 L (5.0-14.0) mmol/L BUN 12 (7-18) mg/dL Creatinine 1.0 (0.6-1.0) mg/dL Est Cr Clr Drug Dosing 39.59 mL/min Estimated GFR (MDRD) 54 L (>60) Glucose 122 H (74-106) mg/dL Calcium 9.0 (8.5-10.1) mg/dL Total Bilirubin 1.4 H (0.2-1.0) mg/dL AST 46 H (15-37) U/L ALT 59 (12-78) U/L Alkaline Phosphatase 98 (46-116) U/L Troponin I < 0.017 (0.000-0.056) ng/mL Total Protein 7.0 (6.4-8.2) g/dL Albumin 3.4 (3.4-5.0) g/dL Globulin 3.6 H (2.3-3.5) g/dL Albumin/Globulin Ratio 0.9 L (1.2-2.2) Urine Color Urine Appearance Urine pH (4.5-8.0) Ur Specific [place] (1.008-1.030) Urine Protein (NEGATIVE) mg/dL Urine Glucose (UA) (NEGATIVE) mg/dL Urine Ketones (NEGATIVE) mg/dL Urine Occult Blood (NEGATIVE) Urine Nitrite (NEGATIVE) Urine Bilirubin (NEGATIVE) Urine Urobilinogen (NORMAL) mg/dL Ur Leukocyte Esterase (NEGATIVE) Urine RBC (0-5) Urine WBC (0-5) Ur Epithelial Cells Amorphous Sediment Urine Bacteria Urine Mucus Urine Other 10/06/17 Range/Units 13:09 WBC (4.5-11.0) K/uL RBC (3.30-5.50) M/uL Hgb (12.0-15.0) g/dL Hct (36.0-48.0) % MCV (80-98) fL MCH (27-31) pg MCHC (32-36) % Plt Count (150-400) K/uL Neut % (Auto) (36-66) % Lymph % (Auto) (24-44) % Wood % (Auto) (2-6) % Eos % (Auto) (2-4) % Baso % (Auto) (0-1) % Sodium (140-148) mmol/L Potassium (3.6-5.2) mmol/L Chloride (100-108) mmol/L Carbon Dioxide (21-32) mmol/L Anion Gap (5.0-14.0) mmol/L BUN (7-18) mg/dL Creatinine (0.6-1.0) mg/dL Est Cr Clr Drug Dosing mL/min Estimated GFR (MDRD) (>60) Glucose (74-106) mg/dL Calcium (8.5-10.1) mg/dL Total Bilirubin (0.2-1.0) mg/dL AST (15-37) U/L ALT (12-78) U/L Alkaline Phosphatase (46-116) U/L Troponin I (0.000-0.056) ng/mL Total Protein (6.4-8.2) g/dL Albumin (3.4-5.0) g/dL Globulin (2.3-3.5) g/dL Albumin/Globulin Ratio (1.2-2.2) Urine Color Yellow Urine Appearance Slightly cloudy Urine pH 8.0 (4.5-8.0) Ur Specific [place] 1.015 (1.008-1.030) Urine Protein Negative (NEGATIVE) mg/dL Urine Glucose (UA) Normal (NEGATIVE) mg/dL Urine Ketones Negative (NEGATIVE) mg/dL Urine Occult Blood Negative (NEGATIVE) Urine Nitrite Negative (NEGATIVE) Urine Bilirubin Negative (NEGATIVE) Urine Urobilinogen Normal (NORMAL) mg/dL Ur Leukocyte Esterase Negative (NEGATIVE) Urine RBC 0-5 (0-5) Urine WBC 0-5 (0-5) Ur Epithelial Cells Rare Amorphous Sediment Not seen Urine Bacteria Moderate Urine Mucus Not seen Urine Other See note Meds: Medications Generic Name Dose Route Start Last Admin Trade Name Freq PRN Reason Stop Dose Admin Sodium Chloride 1,000 mls @ 999 mls/hr 10/06/17 11:45 10/06/17 12:01 Normal Saline IV 999 mls/hr ASDIRECTED WILL Administration Discontinued Medications Generic Name Dose Route Start Last Admin Trade Name Freq PRN Reason Stop Dose Admin Lisinopril 5 mg 10/06/17 13:10 10/06/17 13:27 Prinivil PO 10/06/17 13:11 5 mg ONETIME ONE Administration Lorazepam 0.5 mg 10/06/17 10:58 10/06/17 11:02 Ativan PO 10/06/17 10:59 0.5 mg ONETIME ONE Administration Meclizine HCl 25 mg 10/06/17 11:15 10/06/17 12:02 Antivert PO 10/06/17 11:16 25 mg ONETIME ONE Administration - Re-Assessments/Exams Free Text/Narrative Re-Assessment/Exam: 10/06/17 12:52 Pt was given ativan >.5 and antivert 25 mg . She is feeling better. When she stands up she is not feeling like the room is spinning. 10/06/17 13:48 pt did take her lisinopril 40 mg and metoprol 25 mg this am about 8 am. She was given an extra lisinopril 5mg. She is feeling better and having less vertigo. Departure - Departure Time of Disposition: 13:50 Disposition: Home, Self-Care 01 Condition: Fair Clinical Impression: Vertigo, Hypertension, Anxiety Instructions: Vertigo, [id number] Referrals: Dominic Guerra [employer] [Primary Care Provider] - Forms: ED Department Discharge Care Plan Goals: push fluids, antivert 12.5 mg q6h prn fo dizziness. take tid for the next 2 days then use prn. - My Orders Last 24 Hours: My Active Orders 10/06/17 10:42 Cardiac Monitoring [RC] .As Directed EKG Documentation Completion [RC] ASDIRECTED EKG 12 Lead [EK] Routine 10/06/17 11:45 Sodium Chloride 0.9% [Normal Saline] 1,000 ml IV ASDIRECTED - Assessment/Plan Last 24 Hours: My Active Orders 10/06/17 10:42 Cardiac Monitoring [RC] .As Directed EKG Documentation Completion [RC] ASDIRECTED EKG 12 Lead [EK] Routine 10/06/17 11:45 Sodium Chloride 0.9% [Normal Saline] 1,000 ml IV ASDIRECTED
[2017-10-06] MEDS ORDERED: Lisinopril 5 MG Tab PO ONE (13:10)
[2017-10-06 14:07] VITALS: BP 167/73
== END 2017-10-06 14:08 | disposition home or self-care (01) ==
LOC: JP.ED 10:38
DX: I10 Essential (primary) hypertension (principal); F41.9 Anxiety disorder, unspecified; Z88.5 Allergy status to narcotic agent; Z88.4 Allergy status to anesthetic agent; Z79.82 Long term (current) use of aspirin; Z79.899 Other long term (current) drug therapy; E78.00 Pure hypercholesterolemia, unspecified
CPT/HCPCS: 36415; 80053; 81001; 84484; 85025; 93005; 96360; 99284; A9270; J7040; 93010

== ENCOUNTER 2019-08-23 08:21 | Emergency (ER) | payer MEDICARE ==
[2019-08-23 08:45] VITALS: BP 147/81; PULSE 94
--- NOTE | 2019-08-23 09:30 | EDM.PDOC ---
ED HPI GENERAL MEDICAL PROBLEM - General Chief Complaint: Respiratory Problem Stated Complaint: CHEST PAINS AND SHORT OF BREATH Time Seen by Provider: 08/23/19 08:50 Source of Information: Reports: Patient, Family History Limitations: Reports: No Limitations - History of Present Illness INITIAL COMMENTS - FREE TEXT/NARRATIVE: 71-year-old female with chronic anxiety, has had chest pains, headache, intermittent abdominal pains, decreased appetite and shortness of breath over the past several days. She was in the emergency room 2 days ago and had a thorough workup which was negative. She did have some mild orthostatic hypotension so was given some fluids and a blood pressure medicine was cut back. She arrives today still having some pain in her chest, dizziness, headache , and intermittent shortness of breath. Her blood pressures are normal. No fevers or chills, no nausea or vomiting, no diarrhea or abdominal distention. No urinary symptoms. Onset: Unknown/Unsure Associated Symptoms: Reports: Chest Pain, Headaches, Loss of Appetite, Malaise, Shortness of Breath, Weakness. Denies: Cough, Diaphoresis, Fever/Chills, Nausea /Vomiting Chest Pain Score (Numeric/FACES): 10 - Related Data Allergies Allergy/AdvReac Type Severity Reaction Status Date / Time Anesthetics - Amide Type Allergy Respiratory Verified 08/21/19 10:44 Distress morphine AdvReac Nausea and Verified 08/21/19 10:44 Vomiting Home Meds: Home Meds Aspirin [Aspirin EC] 81 mg PO DAILY 01/06/17 [History] L Gasseri/B Bifidum/B Longum [[email or web address] Capsule] 1 cap PO DAILY [History] Multivitamin [Multi-Vitamin Daily] 1 tab PO DAILY 01/06/17 [History] Naproxen Sodium [Aleve] 220 mg PO ASDIRECTED PRN 01/06/17 [History] [place]-3/DHA/Epa/Fish Oil [[place] 3 500 Softgel] 1 cap PO BEDTIME 01/06/17 [ History] Metoprolol Succinate [Toprol XL] 25 mg PO DAILY 01/07/17 [History] Lisinopril 20 mg PO DAILY 08/21/19 [History] Rosuvastatin Calcium 5 mg PO ASDIRECTED 08/21/19 [History] Past Medical History HEENT History: Reports: Hard of Hearing, Impaired Vision Cardiovascular History: Reports: High Cholesterol, Hypertension Gastrointestinal History: Reports: Hemorrhoids, Other (See Below) Other Gastrointestinal History: gallstones Genitourinary History: Reports: None Musculoskeletal History: Reports: Arthritis Psychiatric History: Reports: Anxiety - Infectious Disease History Infectious Disease History: Reports: Chicken Pox, Measles, Mumps, Pertussis ( Whooping Cough), Other (See Below) Other Infectious Disease History: lymes - Past Surgical History Head Surgeries/Procedures: Reports: None HEENT Surgical History: Reports: None GI Surgical History: Reports: None Female Surgical History: Reports: Other (See Below) Musculoskeletal Surgical History: Reports: None Dermatological Surgical History: Reports: None Social & Family History - Tobacco Use Smoking Status *Q: Never Smoker - Caffeine Use Caffeine Use: Reports: None - Recreational Drug Use Recreational Drug Use: No - Living Situation & Occupation Living situation: Reports: Occupation: Retired ED ROS GENERAL - Review of Systems Review Of Systems: See Below Constitutional: Reports: Malaise, Decreased Appetite. Denies: Fever, Chills HEENT: Denies: Vision Change Respiratory: Reports: Shortness of Breath. Denies: Cough Cardiovascular: Reports: Chest Pain GI/Abdominal: Reports: Abdominal Pain (Intermittent lower pain) Skin: Reports: No Symptoms ED EXAM, GENERAL - Physical Exam Exam: See Below Exam Limited By: No Limitations General Appearance: Alert, No Apparent Distress, Anxious, Other (Tearful, anxious) Eye Exam: Bilateral Eye: Normal Inspection Head: Atraumatic Neck: Normal Inspection Respiratory/Chest: No Respiratory Distress, Lungs Clear, Other (Very tender to palpation over the lower sternum and xiphoid process) Cardiovascular: Regular Rate, Rhythm, Extra Beats (Occasional 1-2 PVCs per minute) GI/Abdominal: Normal Bowel Sounds, Soft, Tender (Some tenderness over the lower abdomen, no distention) Extremities: Normal Inspection. No: Pedal Edema Neurological: Alert, Oriented Psychiatric: Anxious, Depressed Mood Skin Exam: Warm, Dry Course - Vital Signs Last Recorded V/S: Last Vital Signs Temp 98.3 F 08/23/19 08:44 Pulse 94 08/23/19 08:44 Resp 11 L 08/23/19 08:44 BP 147/81 H 08/23/19 08:44 Pulse Ox 94 L 08/23/19 08:44 - Re-Assessments/Exams Free Text/Narrative Re-Assessment/Exam: 08/23/19 09:31 Reviewed her last 4 years of emergency room visits thoroughly. An underlying anxiety is in obvious source of symptoms for her. She has responded very well to Ativan in the past. I had a long talk with the patient regarding all the normal labs and findings from 2 days ago, and her several workups in the past which were also negative. Her is concerned that it is anxiety as well. We will try a few days of low-dose Ativan, she'll return if worsening such as fever or increased shortness of breath and she'll also continue her anti- inflammatories for pain. Departure - Departure Time of Disposition: 10:09 Disposition: Home, Self-Care 01 Clinical Impression: Chest wall pain, Anxiety - Discharge Information Instructions: Living With Anxiety Referrals: Dominic Guerra NP [Primary Care Provider] - Forms: ED Department Discharge Care Plan Goals: Continue all your current medications, and had one half to one pill of Ativan up to 3 or 4 times a day if needed to help with her nerves. Return anytime if worsening such as fever, increased shortness of breath or other concerns. Recheck in 1-2 days if not improving satisfactorily with the new medication.
== END 2019-08-23 10:09 | disposition home or self-care (01) ==
LOC: JP.ED 08:21
DX: R07.89 Other chest pain (principal); F41.9 Anxiety disorder, unspecified; E87.5 Hyperkalemia; I10 Essential (primary) hypertension; Z88.8 Allergy status to other drugs, medicaments and biological substances; Z79.82 Long term (current) use of aspirin; Z79.899 Other long term (current) drug therapy
CPT/HCPCS: 99283

== ENCOUNTER 2021-08-23 22:38 | Emergency (ER) | payer MEDICARE ==
[2021-08-23] MEDS ORDERED: Ketorolac 30 MG/ML SDV IM ONE (23:30)
--- NOTE | 2021-08-23 23:31 | EDM.PDOC ---
ED HPI GENERAL MEDICAL PROBLEM - General Chief Complaint: Flank Pain Stated Complaint: POSSIBLE KIDNEY STONES Time Seen by Provider: 08/23/21 23:26 Source of Information: Reports: Patient, Family, RN Notes Reviewed History Limitations: Reports: No Limitations - History of Present Illness INITIAL COMMENTS - FREE TEXT/NARRATIVE: 81-year-old female presents to the emergency department day complaint of left flank pain, she states it come on all of a sudden today it does get very intense and then relax the pain seems to be moving along her flank. She does have a history of nephrolithiasis several years ago but that was on the right side Left Flank Pain Score (Numeric/FACES): 10 - Related Data Allergies Allergy/AdvReac Type Severity Reaction Status Date / Time Anesthetics - Amide Type - Allergy Respiratory Verified 08/21/19 10:44 Select A Distress [Anesthetics - Amide Type] morphine AdvReac Nausea and Verified 08/21/19 10:44 Vomiting Home Meds: Home Meds Aspirin [Aspirin EC] 81 mg PO DAILY 01/06/17 [History] Multivitamin [Multi-Vitamin Daily] 1 tab PO DAILY 01/06/17 [History] Naproxen Sodium [Aleve] 220 mg PO ASDIRECTED PRN 01/06/17 [History] [place]-3/DHA/Epa/Fish Oil [[place] 3 500 Softgel] 1 cap PO BEDTIME 01/06/17 [History] Rosuvastatin Calcium 5 mg PO ASDIRECTED 08/21/19 [History] lisinopriL [Lisinopril] 20 mg PO DAILY 08/21/19 [History] Past Medical History HEENT History: Reports: Hard of Hearing, Impaired Vision Cardiovascular History: Reports: High Cholesterol, Hypertension Gastrointestinal History: Reports: Hemorrhoids, Other (See Below) Other Gastrointestinal History: gallstones Musculoskeletal History: Reports: Arthritis Psychiatric History: Reports: Anxiety - Infectious Disease History Infectious Disease History: Reports: Chicken Pox, Measles, Mumps, Pertussis (Whooping Cough), Other (See Below) Other Infectious Disease History: lymes - Past Surgical History Head Surgeries/Procedures: Reports: None HEENT Surgical History: Reports: None GI Surgical History: Reports: None Female Surgical History: Reports: Other (See Below) Other Female Surgeries/Procedures: cyst removal from perineum Musculoskeletal Surgical History: Reports: None Dermatological Surgical History: Reports: None Social & Family History - Family History Family Medical History: No Pertinent Family History - Tobacco Use Tobacco Use Status *Q: Never Tobacco User - Caffeine Use Caffeine Use: Reports: None - Recreational Drug Use Recreational Drug Use: No - Living Situation & Occupation Living situation: Reports: Occupation: Retired ED ROS GENERAL - Review of Systems Review Of Systems: See Below Constitutional: Reports: No Symptoms Respiratory: Reports: No Symptoms Cardiovascular: Reports: No Symptoms GI/Abdominal: Reports: Nausea, Vomiting : Reports: Flank Pain ED EXAM, RENAL/ - Physical Exam Exam: See Below Exam Limited By: No Limitations General Appearance: Alert, WD/WN, No Apparent Distress Respiratory/Chest: No Respiratory Distress GI/Abdominal: Normal Bowel Sounds, Soft, Tender (Along left flank left CVA area) Course - Vital Signs Last Recorded V/S: Last Vital Signs Temp 97.7 F 08/23/21 23:18 Pulse 80 08/24/21 00:00 Resp 18 08/24/21 00:00 BP 139/63 08/24/21 00:00 Pulse Ox 97 08/24/21 00:00 - Orders/Labs/Meds Labs: Laboratory Tests 08/24/21 Range/Units 00:47 Urine Color Yellow (YELLOW) Urine Appearance Clear (CLEAR) Urine pH 6.0 (5.0-8.0) Ur Specific [place] 1.020 (1.008-1.030) Urine Protein Negative (NEGATIVE) mg/dL Urine Glucose (UA) Negative (NEGATIVE) mg/dL Urine Ketones Negative (NEGATIVE) mg/dL Urine Occult Blood Moderate H (NEGATIVE) Urine Nitrite Negative (NEGATIVE) Urine Bilirubin Negative (NEGATIVE) Urine Urobilinogen 0.2 (0.2-1.0) EU/dL Ur Leukocyte Esterase Negative (NEGATIVE) Urine RBC 0-5 (0-5) Urine WBC 0-5 (0-5) Ur Epithelial Cells Rare Amorphous Sediment Not seen Urine Bacteria Few Urine Mucus Not seen Urine Other Meds: Medications Discontinued Medications Generic Name Dose Route Start Last Admin Trade Name Freq PRN Reason Stop Dose Admin Ketorolac Tromethamine 30 mg 08/23/21 23:30 08/23/21 23:47 Ketorolac 30 Mg/Ml Sdv IM 08/23/21 23:31 30 mg ONETIME ONE Administration Departure - Departure Time of Disposition: : Disposition: Home, Self-Care 01 Condition: Fair Clinical Impression: Nephrolithiasis - Discharge Information Instructions: Kidney Stones, [id number] Referrals: Dominic Guerra NP [Primary Care Provider] - Forms: ED Department Discharge Additional Instructions: Continue to use the Toradol as needed for pain control, please contact your primary care on Tuesday for referral to urology call return to the emergency department worsening of symptoms Sepsis Event Note (ED) - Focused Exam Vital Signs: Vital Signs Temp Pulse Resp BP Pulse Ox 08/24/21 00:00 80 18 139/63 97 08/23/21 23:41 88 16 147/67 H 98 08/23/21 23:18 97.7 F 90 16 145/70 H 98 - Assessment/Plan Plan: Assessment Acuity = acute Site and laterality = nephrolithiasis left proximal left ureter Etiology = unknown Manifestations = flank pain now controlled Location of injury = Home Lab values = urinalysis unremarkable CT scan describes stone above Plan She had good relief with Toradol provided prescription written for Toradol 10 mg 1 tab p.o. 3 times daily as needed total #20 she is going to contact her primary care on Tuesday for referral to urology This note was dictated using [employer] voice recognition software please call with any questions on syntax or grammar.
[2021-08-24 00:49] VITALS: BP 139/63; PULSE 80
--- NOTE | 2021-08-24 01:02 | CRLCT ---
For Patients: As a result of the Century Cures Act, medical imaging exams and procedure reports are released immediately into your electronic medical record. You may view this report before your referring provider. If you have questions, please contact your health care provider. INDICATION: Left flank pain TECHNIQUE: Axial images were obtained from the diaphragm to the pubic symphysis. Reformats were obtained in the coronal and sagittal plane. IV Contrast: None Oral Contrast: None COMPARISON: None. FINDINGS: Lower chest: Unremarkable. Liver: Unremarkable. Normal in size and attenuation. No masses. Gallbladder and bile ducts: Cholelithiasis without pericholecystic inflammation. Spleen: Unremarkable. Normal in size without mass. Pancreas: Unremarkable. No mass or inflammation. Adrenal glands: Unremarkable. Kidneys: Exophytic cyst upper pole right kidney. Moderate left hydronephrosis with obstructing proximal ureteral stone measuring 6 x 6 x 7 millimeters. Vasculature: Atherosclerosis without abdominal aortic aneurysm. GI tract: Stomach is decompressed no dilated loops of large or small intestine with a moderate amount of stool within the colon. Colonic diverticulosis. Pelvis: Unremarkable. Bones: Degenerative disc disease lumbar spine. IMPRESSION: 1. Nephrolithiasis with moderate left hydronephrosis and obstructing proximal left ureteral stone measuring 6 x 6 x 7 millimeters. 2. Cholel[address]iasis without CT evidence of cholecystitis. Please note that all CT scans at this facility use dose modulation, iterative reconstruction, and/or weight-based dosing when appropriate to reduce radiation dose to as low as reasonably achievable. Dictated by Nehemias Almanza MD @ 08/24/2021 1:00:04 AM (Electronically Signed)
== END 2021-08-24 01:20 | disposition home or self-care (01) ==
LOC: JP.ED 22:38
DX: N13.2 Hydronephrosis with renal and ureteral calculous obstruction (principal); E78.00 Pure hypercholesterolemia, unspecified; I10 Essential (primary) hypertension; Z79.82 Long term (current) use of aspirin; Z79.899 Other long term (current) drug therapy; Z88.4 Allergy status to anesthetic agent; Z88.5 Allergy status to narcotic agent
CPT/HCPCS: 74176; 81001; 96372; 99284-25; J1885